=== PATIENT | female | born 1960 | race Caucasian/White ===

== ENCOUNTER 2017-09-19 08:32 | Inpatient (IN) | payer MEDICARE, MEDICAID ==
[~2017-09-19] VITALS: Ht 162.6 cm; Wt 53.1 kg
[2017-09-19] VITALS (17 sets, daily range): BP systolic 80–146; BP diastolic 55–100
[~2017-09-19 08:32] MED LIST: ATRIN IH; LEVA15HF4 IH; NORCO10T PO; VAL5T PO
[2017-09-19] MEDS ORDERED: normal saline 1000ML IV soln IVB ONE (08:40)
[2017-09-19] MEDS ORDERED: normal saline 1000ml 1,000 ML IV ONE (08:40)
[2017-09-19] MEDS ORDERED: albuterol 2.5 MG/3 ML nebule NEB ONE (08:40)
[2017-09-19] MEDS ORDERED: midazolam 100mg in NS 100ml 100 ML IV PRN (08:44)
[2017-09-19 08:55] LABS: ABG BASE EXCESS -7.1 mmol/L (-2.0-3.0); ABG HCO3 20.4 mmol/L (22.0-26.0); ABG OXYGEN SATURATION 99.4 % (95-98); ABG PCO2 (T) 48.8 mmHg (32.0-45.0); ABG PH (T) 7.239 (7.350-7.450); ABG PO2 (T) 526.3 mmHg (83-108); FCOHb 0.6 % (0.5-1.5); FMetHb 0.2 % (0.3-1.12); FO2Hb 98.6 % (94-100); PEEP 5 cm H2O; RESPIRATORY RATE 16 b/min; TIDAL VOLUME 400 mL; TOTAL HEMOGLOBIN 13.7 G/dl (12.0-16.0)
[2017-09-19] MEDS ORDERED: magnesium hydroxide 30ml (MOM) UD suspension PO PRN (08:55)
[2017-09-19] MEDS ORDERED: potassium Cl 40MEQ/NS 500ml 500 ML IV PRN (08:55)
[2017-09-19] MEDS ORDERED: ondansetron/PF 4mg/2ml inj IV PRN (08:55)
[2017-09-19] MEDS ORDERED: magnesium 4gm in 100ml NS 100 ML IV PRN (08:55)
[2017-09-19] MEDS ORDERED: sodium phosphate inj. 15 MMOL in dextrose 5%-water 150 ML IV PRN (08:55)
[2017-09-19] MEDS ORDERED: sodium phosphate inj. 30 MMOL in dextrose 5%-water 250 ML IV PRN (08:55)
[2017-09-19] MEDS ORDERED: magnesium 2GM in 50ml NS 50 ML IV PRN (08:55)
[2017-09-19] MEDS ORDERED: potassium Cl 20 mEq SR tablet PO PRN (08:55)
[2017-09-19] MEDS ORDERED: Neutra Phos packet PO PRN (08:55)
[2017-09-19] MEDS ORDERED: ipratropium/albuterol 3ml nebule NEB PRN (08:55)
[2017-09-19] MEDS ORDERED: magnesium Cl slow-release 64mg tablet PO PRN (08:55)
[2017-09-19] MEDS ORDERED: acetaminophen 325mg tablet PO PRN (08:55)
[2017-09-19 09:19] LABS: ALANINE AMINOTRANSFERASE 41 U/L (12-78); ALBUMIN 3.3 G/DL (3.4-5.0); ALBUMIN/GLOBULIN RATIO 1.1 (1.1-1.5); ALKALINE PHOSPHATASE 65 IU/L (46-116); ANION GAP 8 (8-16); ASPARTATE AMINO TRANSFERASE 36 U/L (10-37); BILIRUBIN,TOTAL 0.4 MG/DL (0.1-1.0); BLOOD UREA NITROGEN 20 MG/DL (7-18); BUN/CREATININE RATIO 19.8 (6.6-38.0); CALCIUM 7.8 MG/DL (8.5-10.1); CHLORIDE 110 MMOL/L (99-107); CREATININE 1.01 MG/DL (0.40-0.90); GLUCOSE 177 MG/DL (70-104); MAGNESIUM 2.2 MG/DL (1.5-2.4); POTASSIUM 3.9 MMOL/L (3.5-5.1); SODIUM 144 MMOL/L (135-145); TOTAL CARBON DIOXIDE 25.8 MMOL/L (24-32); TOTAL PROTEIN 6.2 G/DL (6.4-8.2); eGFR 56 ML/MIN
[2017-09-19] MEDS ORDERED: epiNEPHrine inj 5 MG in normal saline 250ml IV soln 245 ML IV SCH (09:25)
[2017-09-19 09:27] LABS: BASOPHILS % (AUTO) 0 % (0-1); EOSINOPHILS # (AUTO) 0.9 X10'3 (0-0.9); EOSINOPHILS % (AUTO) 3.7 % (0-6); HEMATOCRIT 36.2 % (35.0-45.0); HEMOGLOBIN 12.1 g/dl (12.0-16.0); LYMPHOCYTES % (AUTO) 8.4 % (21-51); MEAN CORPUSCULAR HGB CONC 33.6 % (33.0-36.5); MEAN CORPUSCULAR VOLUME 92.3 FL (78-98); MEAN PLATELET VOLUME 11.2 FL (7.4-10.4); MONOCYTES # (AUTO) 0.5 X10'3 (0-0.9); NEUTROPHILS # (AUTO) 20.7 X10'3 (1.8-7.7); NEUTROPHILS % (AUTO) 85.9 % (42-75); PLATELET COUNT 135 X10'3 (140-440); RED BLOOD COUNT 3.92 X10'6 (4.20-5.60); RED CELL DISTRIBUTION WIDTH 14.9 % (11.5-14.5)
[2017-09-19 09:42] LABS: PHOSPHORUS 4.7 MG/DL (2.3-4.5)
[2017-09-19] MEDS: normal saline 1000ml 1,000 ML IV SCH ×2 (09:53→23:35)
[2017-09-19 10:08] LABS: D-DIMER 6.61 MG/L FEU (0-0.50); PARTIAL THROMBOPLASTIN TIME 29 SECONDS (22-32); PROTHROMBIN TIME 10.8 SECONDS (9.0-12.0)
[2017-09-19] MEDS: cefTRIAXone 1g/NS 100ml IVPB 100 ML IV SCH (10:16)
[2017-09-19 10:22] LABS: CLARITY,URINE SLIGHTLY CLOUDY (Clear); GLUCOSE, URINE NEGATIVE (Neg); KETONES,URINE NEGATIVE (Neg); LEUKOCYTE ESTERASE ,URINE NEGATIVE (Neg); NITRITES, URINE NEGATIVE (Neg); OCCULT BLOOD,URINE TRACE-INTACT (Neg); PROTEIN,URINE NEGATIVE (Neg); UROBILINOGEN,URINE 0.2 E.U/dL (0.2-1.0)
[2017-09-19 10:24] LABS: PLATELET COUNT 135 X10'3 (140-440)
[2017-09-19 10:24] LABS: COLOR,URINE STRAW (Yellow); UA COLLECTION TYPE FOLEY CATH
[2017-09-19] MEDS: midazolam 100mg in NS 100ml 100 ML IV PRN ×2 (10:26→23:34)
[2017-09-19 10:33] LABS: MUCUS STRANDS FEW /LPF (Neg); SQUAMOUS EPITHELIAL CELL,UR FEW /LPF (FEW)
[2017-09-19 10:34] LABS: BACTERIA,URINE FEW /HPF (Neg); CELLULAR CAST 0-4 /LPF (NEGATIVE); FINE GRANULAR CAST 0-3 /LPF (NEGATIVE); HYALINE CASTS 0-3 /LPF (NEGATIVE); RBC,URINE 0-2 /HPF (0-2); WBC,URINE 0-4 /HPF (0-4)
[2017-09-19] MEDS: FENTANYL-0.9 % NACL/PF 100 ML IV PRN ×2 (12:00→23:35)
[2017-09-19] MEDS: NORepinephrine 8mg/ 250ml NS 250 ML IV SCH (12:41)
[2017-09-19] MEDS: ipratropium/albuterol 3ml nebule NEB SCH ×3 (14:39→22:49)
[2017-09-19] MEDS: levoFLOXACIN-Levaquin 500mg/D5 100 ML IV SCH (14:44)
[2017-09-19] MEDS: methylPREDNISolone sod succ 125mg/2ml vial IV SCH ×2 (14:44→23:33)
[2017-09-19] MEDS ORDERED: UNABLE TO OBTAIN (16:47)
[2017-09-19] MEDS: docusate sod 100mg capsule PO SCH (20:00)
[2017-09-19] MEDS: heparin, porcine 5000 units/ml vial SQ SCH (23:34)
[2017-09-20] VITALS (23 sets, daily range): BP systolic 86–121; BP diastolic 51–74
[2017-09-20 02:51] LABS: ABG BASE EXCESS -4.9 mmol/L (-2.0-3.0); ABG HCO3 21.3 mmol/L (22.0-26.0); ABG OXYGEN SATURATION 90.8 % (95-98); ABG PCO2 (T) 44.2 mmHg (32.0-45.0); ABG PH (T) 7.302 (7.350-7.450); ABG PO2 (T) 61.6 mmHg (83-108); ALLEN'S TEST Positive; FCOHb 0.7 % (0.5-1.5); FMetHb 0.1 % (0.3-1.12); FO2Hb 90.1 % (94-100); MINUTE VOLUME 7 L/min; PATIENT TEMPERATURE 37.2; PEEP 5 cm H2O; RESPIRATORY RATE 18 b/min; RESPIRATORY RATE (OBSERVED) 22 b/min; TOTAL HEMOGLOBIN 13.8 G/dl (12.0-16.0)
[2017-09-20] MEDS: ipratropium/albuterol 3ml nebule NEB SCH ×6 (02:59→23:10)
[2017-09-20] MEDS: methylPREDNISolone sod succ 125mg/2ml vial IV SCH ×4 (03:32→20:08)
[2017-09-20 04:06] LABS: BASOPHILS % (AUTO) 0.1 % (0-1); EOSINOPHILS # (AUTO) 0.2 X10'3 (0-0.9); EOSINOPHILS % (AUTO) 1.8 % (0-6); HEMATOCRIT 39.5 % (35.0-45.0); HEMOGLOBIN 13.1 g/dl (12.0-16.0); LYMPHOCYTES # (AUTO) 0.4 X10'3 (1.1-4.8); LYMPHOCYTES % (AUTO) 2.8 % (21-51); MEAN CORPUSCULAR HEMOGLOBIN 30.6 PG (27.0-31.0); MEAN CORPUSCULAR HGB CONC 33.1 % (33.0-36.5); MEAN CORPUSCULAR VOLUME 92.3 FL (78-98); MEAN PLATELET VOLUME 11.5 FL (7.4-10.4); MONOCYTES # (AUTO) 0.1 X10'3 (0-0.9); MONOCYTES % (AUTO) 0.7 % (2-12); NEUTROPHILS % (AUTO) 94.6 % (42-75); PLATELET COUNT 124 X10'3 (140-440); RED BLOOD COUNT 4.28 X10'6 (4.20-5.60); RED CELL DISTRIBUTION WIDTH 15.1 % (11.5-14.5); WHITE BLOOD COUNT 12.7 X10'3 (4.5-11.0)
[2017-09-20 04:23] LABS: ALANINE AMINOTRANSFERASE 36 U/L (12-78); ALBUMIN 2.9 G/DL (3.4-5.0); ALBUMIN/GLOBULIN RATIO 1.1 (1.1-1.5); ALKALINE PHOSPHATASE 51 IU/L (46-116); ANION GAP 7 (8-16); ASPARTATE AMINO TRANSFERASE 22 U/L (10-37); BILIRUBIN,TOTAL 0.4 MG/DL (0.1-1.0); BLOOD UREA NITROGEN 15 MG/DL (7-18); BUN/CREATININE RATIO 20.8 (6.6-38.0); CHLORIDE 109 MMOL/L (99-107); CREATININE 0.72 MG/DL (0.40-0.90); GLUCOSE 169 MG/DL (70-104); MAGNESIUM 1.8 MG/DL (1.5-2.4); PHOSPHORUS 3.2 MG/DL (2.3-4.5); SODIUM 141 MMOL/L (135-145); TOTAL PROTEIN 5.6 G/DL (6.4-8.2); eGFR 83 ML/MIN
[2017-09-20] MEDS: cefTRIAXone 1g/NS 100ml IVPB 100 ML IV SCH (08:00)
[2017-09-20] MEDS: pantoprazole 40 MG vial IV SCH (08:01)
[2017-09-20] MEDS: heparin, porcine 5000 units/ml vial SQ SCH ×2 (08:01→20:12)
[2017-09-20] MEDS: FENTANYL-0.9 % NACL/PF 100 ML IV PRN ×2 (08:02→19:24)
[2017-09-20] MEDS: levoFLOXACIN-Levaquin 500mg/D5 100 ML IV SCH (10:04)
[2017-09-20] MEDS: docusate sod 100mg capsule PO SCH ×2 (11:39→20:00)
[2017-09-20] MEDS ORDERED: normal saline 1000ml 1,000 ML IV ONE (11:40)
[2017-09-20] MEDS ORDERED: furosemide 20 MG/2 ML vial IV ONE (11:40)
[2017-09-20] MEDS: normal saline 1000ml 1,000 ML IV SCH (11:41)
[2017-09-20] MEDS: midazolam 100mg in NS 100ml 100 ML IV PRN ×2 (12:11→23:49)
[2017-09-20] MEDS ORDERED: dextrose 50%-water 50ml dispensing syringe IV PRN ×2 (14:35)
[2017-09-20] MEDS ORDERED: dextrose ORAL solution 15 GM/59 ML bottle PO PRN ×2 (14:35)
[2017-09-20] MEDS ORDERED: glucagon, human recombinant 1mg kit SUBCUT PRN (14:35)
[2017-09-20] MEDS ORDERED: MESSAGE TO PHARMACY PO ONE (14:35)
[2017-09-20] MEDS: mineral oil/petrolatum ophthal oint EACHEYE SCH ×2 (14:37→20:18)
[2017-09-20] MEDS: insulin regular, human vial - multi-dose SQ SCH ×2 (15:42→19:57)
[2017-09-20] MEDS: NORepinephrine 8mg/ 250ml NS 250 ML IV SCH (19:25)
[2017-09-20] MEDS: lactobacillus rhamnosus 10,000 MMU CELLS/CAPSULE PO SCH (20:12)
[2017-09-20] MEDS ORDERED: insulin glargine (Lantus) pen - multi-dose SQ SCH (21:00)
[2017-09-21] VITALS (24 sets, daily range): BP systolic 96–142; BP diastolic 52–87
[2017-09-21] MEDS: FENTANYL-0.9 % NACL/PF 100 ML IV PRN ×3 (01:06→14:28)
[2017-09-21 02:56] LABS: ABG BASE EXCESS 0.1 mmol/L (-2.0-3.0); ABG HCO3 26.7 mmol/L (22.0-26.0); ABG OXYGEN SATURATION 93.4 % (95-98); ABG PCO2 (T) 52.8 mmHg (32.0-45.0); ABG PH (T) 7.323 (7.350-7.450); ABG PO2 (T) 70.8 mmHg (83-108); ALLEN'S TEST Positive; FCOHb 0.1 % (0.5-1.5); FMetHb 0.3 % (0.3-1.12); PATIENT TEMPERATURE 37.2; PEEP 5 cm H2O; RESPIRATORY RATE 18 b/min; RESPIRATORY RATE (OBSERVED) 18 b/min; TIDAL VOLUME 400 mL
[2017-09-21] MEDS: ipratropium/albuterol 3ml nebule NEB SCH ×6 (02:58→22:59)
[2017-09-21] MEDS: methylPREDNISolone sod succ 125mg/2ml vial IV SCH ×4 (02:59→21:48)
[2017-09-21 03:09] LABS: BASOPHILS % (AUTO) 0 % (0-1); EOSINOPHILS # (AUTO) 0.4 X10'3 (0-0.9); EOSINOPHILS % (AUTO) 2.1 % (0-6); HEMATOCRIT 33.2 % (35.0-45.0); HEMOGLOBIN 11.2 g/dl (12.0-16.0); LYMPHOCYTES # (AUTO) 0.3 X10'3 (1.1-4.8); LYMPHOCYTES % (AUTO) 1.5 % (21-51); MEAN CORPUSCULAR HEMOGLOBIN 31.3 PG (27.0-31.0); MEAN CORPUSCULAR HGB CONC 33.7 % (33.0-36.5); MEAN PLATELET VOLUME 9.5 FL (7.4-10.4); MONOCYTES # (AUTO) 0.5 X10'3 (0-0.9); MONOCYTES % (AUTO) 2.5 % (2-12); NEUTROPHILS # (AUTO) 19.6 X10'3 (1.8-7.7); NEUTROPHILS % (AUTO) 93.9 % (42-75); PLATELET COUNT 87 X10'3 (140-440); RED BLOOD COUNT 3.56 X10'6 (4.20-5.60); RED CELL DISTRIBUTION WIDTH 15.4 % (11.5-14.5); WHITE BLOOD COUNT 20.9 X10'3 (4.5-11.0)
[2017-09-21] MEDS: insulin regular, human vial - multi-dose SQ SCH ×4 (03:09→21:30)
[2017-09-21] MEDS: mineral oil/petrolatum ophthal oint EACHEYE SCH ×4 (03:15→21:52)
[2017-09-21 03:38] LABS: ALANINE AMINOTRANSFERASE 25 U/L (12-78); ALBUMIN 2.5 G/DL (3.4-5.0); ALKALINE PHOSPHATASE 42 IU/L (46-116); ANION GAP 3 (8-16); ASPARTATE AMINO TRANSFERASE 10 U/L (10-37); BILIRUBIN,TOTAL 0.1 MG/DL (0.1-1.0); BLOOD UREA NITROGEN 22 MG/DL (7-18); BUN/CREATININE RATIO 33.3 (6.6-38.0); CALCIUM 7.7 MG/DL (8.5-10.1); CHLORIDE 112 MMOL/L (99-107); CREATININE 0.66 MG/DL (0.40-0.90); GLUCOSE 168 MG/DL (70-104); MAGNESIUM 1.9 MG/DL (1.5-2.4); PHOSPHORUS 2.2 MG/DL (2.3-4.5); POTASSIUM 4.1 MMOL/L (3.5-5.1); SODIUM 143 MMOL/L (135-145); TOTAL CARBON DIOXIDE 27.7 MMOL/L (24-32); TOTAL PROTEIN 5.1 G/DL (6.4-8.2); eGFR > 90 ML/MIN
[2017-09-21 03:40] LABS: HEMOGLOBIN A1C 5.6 % (4.5-6.2)
[2017-09-21] MEDS: normal saline 1000ml 1,000 ML IV SCH ×2 (05:48→14:13)
[2017-09-21] MEDS: lactobacillus rhamnosus 10,000 MMU CELLS/CAPSULE PO SCH ×2 (08:21→21:52)
[2017-09-21] MEDS: levoFLOXACIN-Levaquin 500mg/D5 100 ML IV SCH (08:21)
[2017-09-21] MEDS: pantoprazole 40 MG vial IV SCH (08:21)
[2017-09-21] MEDS: cefTRIAXone 1g/NS 100ml IVPB 100 ML IV SCH (08:21)
[2017-09-21] MEDS ORDERED: docusate sodium 100mg/10ml UD cup PO ONE (08:25)
[2017-09-21] MEDS ORDERED: lactulose 20gm/30ml cup PO PRN (08:55)
[2017-09-21] MEDS: heparin, porcine 5000 units/ml vial SQ SCH ×2 (09:14→21:55)
[2017-09-21] MEDS: morphine/NS 100mg/100ml bag 100 ML IV SCH (10:55)
[2017-09-21] MEDS: midazolam 100mg in NS 100ml 100 ML IV PRN (14:12)
[2017-09-21] MEDS: NORepinephrine 8mg/ 250ml NS 250 ML IV SCH (14:29)
[2017-09-21] MEDS: docusate sodium 100mg/10ml UD cup PO SCH (20:00)
[2017-09-21] MEDS: insulin glargine (Lantus) pen - multi-dose SQ SCH (21:32)
[2017-09-22] VITALS (24 sets, daily range): BP systolic 106–189; BP diastolic 58–110
[2017-09-22] MEDS: midazolam 100mg in NS 100ml 100 ML IV PRN (01:45)
[2017-09-22] MEDS: mineral oil/petrolatum ophthal oint EACHEYE SCH ×4 (02:00→20:00)
[2017-09-22] MEDS: ipratropium/albuterol 3ml nebule NEB SCH ×5 (02:46→21:08)
[2017-09-22] MEDS: methylPREDNISolone sod succ 125mg/2ml vial IV SCH ×4 (02:58→21:18)
[2017-09-22] MEDS: insulin regular, human vial - multi-dose SQ SCH ×2 (03:04→08:48)
[2017-09-22] MEDS: normal saline 1000ml 1,000 ML IV SCH ×2 (03:33→14:21)
[2017-09-22 03:36] LABS: ABG BASE EXCESS 0.7 mmol/L (-2.0-3.0); ABG HCO3 27.2 mmol/L (22.0-26.0); ABG OXYGEN SATURATION 97.7 % (95-98); ABG PH (T) 7.336 (7.350-7.450); ABG PO2 (T) 106.8 mmHg (83-108); ALLEN'S TEST Positive; FCOHb 0.3 % (0.5-1.5); FMetHb 0.3 % (0.3-1.12); FO2Hb 97.1 % (94-100); MINUTE VOLUME 8 L/min; PEEP 5 cm H2O; RESPIRATORY RATE 18 b/min; RESPIRATORY RATE (OBSERVED) 18 b/min; TIDAL VOLUME 400 mL; TOTAL HEMOGLOBIN 11.5 G/dl (12.0-16.0)
[2017-09-22 04:32] LABS: BASOPHILS % (AUTO) 0 % (0-1); EOSINOPHILS # (AUTO) 0.4 X10'3 (0-0.9); EOSINOPHILS % (AUTO) 2.1 % (0-6); HEMATOCRIT 33.1 % (35.0-45.0); LYMPHOCYTES # (AUTO) 0.3 X10'3 (1.1-4.8); LYMPHOCYTES % (AUTO) 1.6 % (21-51); MEAN CORPUSCULAR HEMOGLOBIN 31.3 PG (27.0-31.0); MEAN CORPUSCULAR HGB CONC 33.2 % (33.0-36.5); MEAN CORPUSCULAR VOLUME 94.2 FL (78-98); MEAN PLATELET VOLUME 9.8 FL (7.4-10.4); MONOCYTES # (AUTO) 0.5 X10'3 (0-0.9); MONOCYTES % (AUTO) 2.7 % (2-12); NEUTROPHILS # (AUTO) 18.9 X10'3 (1.8-7.7); NEUTROPHILS % (AUTO) 93.6 % (42-75); PLATELET COUNT 76 X10'3 (140-440); RED BLOOD COUNT 3.51 X10'6 (4.20-5.60); RED CELL DISTRIBUTION WIDTH 15.9 % (11.5-14.5); WHITE BLOOD COUNT 20.2 X10'3 (4.5-11.0)
[2017-09-22 04:48] LABS: ALANINE AMINOTRANSFERASE 44 U/L (12-78); ALBUMIN 2.5 G/DL (3.4-5.0); ALKALINE PHOSPHATASE 41 IU/L (46-116); ANION GAP 5 (8-16); ASPARTATE AMINO TRANSFERASE 27 U/L (10-37); BILIRUBIN,TOTAL 0.1 MG/DL (0.1-1.0); BLOOD UREA NITROGEN 26 MG/DL (7-18); BUN/CREATININE RATIO 44.1 (6.6-38.0); CALCIUM 7.9 MG/DL (8.5-10.1); CHLORIDE 113 MMOL/L (99-107); CREATININE 0.59 MG/DL (0.40-0.90); GLUCOSE 151 MG/DL (70-104); MAGNESIUM 2.2 MG/DL (1.5-2.4); PHOSPHORUS 2.4 MG/DL (2.3-4.5); POTASSIUM 4.4 MMOL/L (3.5-5.1); SODIUM 147 MMOL/L (135-145); TOTAL CARBON DIOXIDE 28.9 MMOL/L (24-32); eGFR > 90 ML/MIN
[2017-09-22] MEDS ORDERED: CefTRIAXone/D5W-Rocephin 1gm 50 ML IV SCH (08:00)
[2017-09-22] MEDS: levoFLOXACIN-Levaquin 500mg/D5 100 ML IV SCH (08:14)
[2017-09-22] MEDS: pantoprazole 40 MG vial IV SCH (08:15)
[2017-09-22] MEDS: lactobacillus rhamnosus 10,000 MMU CELLS/CAPSULE PO SCH ×2 (08:15→21:18)
[2017-09-22] MEDS: docusate sodium 100mg/10ml UD cup PO SCH ×2 (08:15→21:18)
[2017-09-22] MEDS: heparin, porcine 5000 units/ml vial SQ SCH ×2 (09:08→21:18)
[2017-09-22] MEDS ORDERED: ipratropium/albuterol 3ml nebule NEB PRN (12:20)
[2017-09-22] MEDS ORDERED: racepinephrine 11.25mg/0.5ml nebule NEB PRN (12:20)
[2017-09-22] MEDS: ALPRAZolam 0.25mg tablet PO PRN ×2 (15:55→21:26)
[2017-09-22] MEDS: insulin glargine (Lantus) pen - multi-dose SQ SCH (21:00)
[2017-09-22] MEDS: acetaminophen 325mg tablet PO PRN (21:27)
[2017-09-23] VITALS (14 sets, daily range): BP systolic 144–186; BP diastolic 81–115
[2017-09-23] MEDS: mineral oil/petrolatum ophthal oint EACHEYE SCH ×4 (02:00→20:00)
[2017-09-23] MEDS: methylPREDNISolone sod succ 125mg/2ml vial IV SCH ×4 (02:06→19:47)
[2017-09-23 02:35] LABS: BASOPHILS # (AUTO) 0.2 X10'3 (0-0.2); BASOPHILS % (AUTO) 1.2 % (0-1); EOSINOPHILS # (AUTO) 0.2 X10'3 (0-0.9); EOSINOPHILS % (AUTO) 1.5 % (0-6); HEMATOCRIT 38.1 % (35.0-45.0); HEMOGLOBIN 12.6 g/dl (12.0-16.0); LYMPHOCYTES # (AUTO) 0.4 X10'3 (1.1-4.8); LYMPHOCYTES % (AUTO) 2.7 % (21-51); MEAN CORPUSCULAR HGB CONC 33.2 % (33.0-36.5); MEAN CORPUSCULAR VOLUME 93.2 FL (78-98); MEAN PLATELET VOLUME 10.4 FL (7.4-10.4); MONOCYTES # (AUTO) 0.8 X10'3 (0-0.9); NEUTROPHILS % (AUTO) 89.6 % (42-75); PLATELET COUNT 74 X10'3 (140-440); RED BLOOD COUNT 4.08 X10'6 (4.20-5.60); RED CELL DISTRIBUTION WIDTH 15.7 % (11.5-14.5); WHITE BLOOD COUNT 15.6 X10'3 (4.5-11.0)
[2017-09-23] MEDS: normal saline 1000ml 1,000 ML IV SCH (02:36)
[2017-09-23] MEDS: morphine/NS 100mg/100ml bag 100 ML IV SCH (02:55)
[2017-09-23 03:00] LABS: ALANINE AMINOTRANSFERASE 258 U/L (12-78); ALBUMIN 3.1 G/DL (3.4-5.0); ALBUMIN/GLOBULIN RATIO 1.1 (1.1-1.5); ALKALINE PHOSPHATASE 56 IU/L (46-116); ANION GAP 6 (8-16); ASPARTATE AMINO TRANSFERASE 139 U/L (10-37); BILIRUBIN,TOTAL 0.8 MG/DL (0.1-1.0); BLOOD UREA NITROGEN 23 MG/DL (7-18); CALCIUM 8.6 MG/DL (8.5-10.1); CHLORIDE 102 MMOL/L (99-107); CREATININE 0.59 MG/DL (0.40-0.90); GLUCOSE 98 MG/DL (70-104); POTASSIUM 3.7 MMOL/L (3.5-5.1); SODIUM 142 MMOL/L (135-145); TOTAL CARBON DIOXIDE 33.6 MMOL/L (24-32); TOTAL PROTEIN 5.9 G/DL (6.4-8.2); eGFR > 90 ML/MIN
[2017-09-23] MEDS: ipratropium/albuterol 3ml nebule NEB SCH ×4 (03:22→22:28)
[2017-09-23] MEDS: ALPRAZolam 0.25mg tablet PO PRN ×2 (04:07→11:50)
[2017-09-23] MEDS: levoFLOXACIN-Levaquin 500mg/D5 100 ML IV SCH (08:00)
[2017-09-23] MEDS: docusate sodium 100mg/10ml UD cup PO SCH ×2 (09:23→20:00)
[2017-09-23] MEDS: lactobacillus rhamnosus 10,000 MMU CELLS/CAPSULE PO SCH ×2 (09:23→19:46)
[2017-09-23] MEDS: pantoprazole 40 MG vial IV SCH (09:23)
[2017-09-23] MEDS: heparin, porcine 5000 units/ml vial SQ SCH ×2 (09:24→20:00)
[2017-09-23] MEDS: CefTRIAXone inj 1,000 MG in normal saline 100ml IV soln 100 ML IV SCH (11:50)
[2017-09-23] MEDS ORDERED: enalaprilat dihydrate 2.5mg/2ml vial IV ONE (15:50)
[2017-09-23] MEDS: ALPRAZolam 0.5mg tablet PO PRN (18:20)
[2017-09-23] MEDS: temazepam 15mg capsule PO PRN (19:46)
[2017-09-23] MEDS: insulin glargine (Lantus) pen - multi-dose SQ SCH (21:00)
[2017-09-24] MEDS: mineral oil/petrolatum ophthal oint EACHEYE SCH ×4 (02:00→20:00)
[2017-09-24] MEDS: ipratropium/albuterol 3ml nebule NEB SCH (02:29)
[2017-09-24] MEDS: ALPRAZolam 0.5mg tablet PO PRN ×3 (02:35→23:28)
[2017-09-24] MEDS: methylPREDNISolone sod succ 125mg/2ml vial IV SCH ×4 (02:36→21:08)
[2017-09-24 03:00] VITALS: BP 137/84
[2017-09-24 06:00] VITALS: BP 108/63
[2017-09-24 06:47] LABS: BASOPHILS % (AUTO) 0.1 % (0-1); EOSINOPHILS % (AUTO) 0.1 % (0-6); LYMPHOCYTES # (AUTO) 0.4 X10'3 (1.1-4.8); LYMPHOCYTES % (AUTO) 4.7 % (21-51); MEAN CORPUSCULAR HGB CONC 34.2 % (33.0-36.5); MEAN CORPUSCULAR VOLUME 90.8 FL (78-98); MEAN PLATELET VOLUME 9.4 FL (7.4-10.4); MONOCYTES # (AUTO) 0.7 X10'3 (0-0.9); MONOCYTES % (AUTO) 7.4 % (2-12); NEUTROPHILS # (AUTO) 7.8 X10'3 (1.8-7.7); NEUTROPHILS % (AUTO) 87.7 % (42-75); PLATELET COUNT 58 X10'3 (140-440); RED BLOOD COUNT 4.19 X10'6 (4.20-5.60); RED CELL DISTRIBUTION WIDTH 15.6 % (11.5-14.5); WHITE BLOOD COUNT 8.9 X10'3 (4.5-11.0)
[2017-09-24 07:12] LABS: ALANINE AMINOTRANSFERASE 304 U/L (12-78); ALBUMIN 3.2 G/DL (3.4-5.0); ALBUMIN/GLOBULIN RATIO 1.3 (1.1-1.5); ALKALINE PHOSPHATASE 63 IU/L (46-116); ANION GAP 3 (8-16); ASPARTATE AMINO TRANSFERASE 76 U/L (10-37); BILIRUBIN,TOTAL 0.9 MG/DL (0.1-1.0); BLOOD UREA NITROGEN 25 MG/DL (7-18); CALCIUM 8.8 MG/DL (8.5-10.1); CHLORIDE 104 MMOL/L (99-107); CREATININE 0.61 MG/DL (0.40-0.90); GLUCOSE 133 MG/DL (70-104); MAGNESIUM 2.3 MG/DL (1.5-2.4); PHOSPHORUS 3.5 MG/DL (2.3-4.5); POTASSIUM 3.4 MMOL/L (3.5-5.1); PREALBUMIN 22.3 MG/DL (19-36); SODIUM 144 MMOL/L (135-145); TOTAL CARBON DIOXIDE 37.3 MMOL/L (24-32); TOTAL PROTEIN 5.7 G/DL (6.4-8.2); eGFR > 90 ML/MIN
[2017-09-24] MEDS: sertraline 25mg tablet PO SCH ×2 (07:41→08:00)
[2017-09-24] MEDS: heparin, porcine 5000 units/ml vial SQ SCH ×2 (07:42→21:10)
[2017-09-24] MEDS: pantoprazole 40mg Tablet.DR PO SCH (07:43)
[2017-09-24] MEDS: lactobacillus rhamnosus 10,000 MMU CELLS/CAPSULE PO SCH ×2 (07:43→21:08)
[2017-09-24] MEDS: CefTRIAXone inj 1,000 MG in normal saline 100ml IV soln 100 ML IV SCH ×2 (07:43→08:50)
[2017-09-24] MEDS ORDERED: methylnaltrexone br 12mg/0.6ml inj***SubQ only SQ SCH (08:00)
[2017-09-24] MEDS: docusate sodium 100mg/10ml UD cup PO SCH ×2 (08:00→20:00)
[2017-09-24] MEDS ORDERED: iohexol 350MG/ML 100ml bottle IV ONE (10:21)
[2017-09-24 11:00] VITALS: BP 151/100
[2017-09-24] MEDS: potassium Cl 20 mEq SR tablet PO PRN ×2 (11:30→15:27)
[2017-09-24] MEDS: acetaminophen 325mg tablet PO PRN ×3 (11:37→23:18)
[2017-09-24 15:00] VITALS: BP 129/76
[2017-09-24 15:36] LABS: INR 1.1 INR; PARTIAL THROMBOPLASTIN TIME 24 SECONDS (22-32); PROTHROMBIN TIME 10.9 SECONDS (9.0-12.0)
[2017-09-24 19:00] VITALS: BP 134/77
[2017-09-24] MEDS: insulin glargine (Lantus) pen - multi-dose SQ SCH (21:00)
[2017-09-24 23:00] VITALS: BP 146/102
[2017-09-25] MEDS: mineral oil/petrolatum ophthal oint EACHEYE SCH ×2 (02:00→06:41)
[2017-09-25] MEDS: methylPREDNISolone sod succ 125mg/2ml vial IV SCH ×3 (02:10→13:54)
[2017-09-25 03:00] VITALS: BP 130/76
[2017-09-25 05:41] LABS: BASOPHILS % (AUTO) 0.1 % (0-1); EOSINOPHILS % (AUTO) 0.1 % (0-6); HEMATOCRIT 41.6 % (35.0-45.0); HEMOGLOBIN 14.3 g/dl (12.0-16.0); LYMPHOCYTES # (AUTO) 0.5 X10'3 (1.1-4.8); LYMPHOCYTES % (AUTO) 4.3 % (21-51); MEAN CORPUSCULAR HEMOGLOBIN 31.5 PG (27.0-31.0); MEAN CORPUSCULAR HGB CONC 34.4 % (33.0-36.5); MEAN CORPUSCULAR VOLUME 91.7 FL (78-98); MEAN PLATELET VOLUME 11.5 FL (7.4-10.4); MONOCYTES # (AUTO) 0.4 X10'3 (0-0.9); MONOCYTES % (AUTO) 3.2 % (2-12); NEUTROPHILS # (AUTO) 11.4 X10'3 (1.8-7.7); NEUTROPHILS % (AUTO) 92.3 % (42-75); PLATELET COUNT 71 X10'3 (140-440); RED BLOOD COUNT 4.53 X10'6 (4.20-5.60); RED CELL DISTRIBUTION WIDTH 15.3 % (11.5-14.5); WHITE BLOOD COUNT 12.4 X10'3 (4.5-11.0)
[2017-09-25 05:55] LABS: ALANINE AMINOTRANSFERASE 243 U/L (12-78); ALBUMIN 3.3 G/DL (3.4-5.0); ALBUMIN/GLOBULIN RATIO 1.2 (1.1-1.5); ALKALINE PHOSPHATASE 63 IU/L (46-116); ANION GAP 4 (8-16); ASPARTATE AMINO TRANSFERASE 29 U/L (10-37); BILIRUBIN,TOTAL 0.9 MG/DL (0.1-1.0); BLOOD UREA NITROGEN 28 MG/DL (7-18); BUN/CREATININE RATIO 36.8 (6.6-38.0); CALCIUM 8.7 MG/DL (8.5-10.1); CHLORIDE 104 MMOL/L (99-107); CREATININE 0.76 MG/DL (0.40-0.90); GLUCOSE 127 MG/DL (70-104); MAGNESIUM 2.2 MG/DL (1.5-2.4); PHOSPHORUS 3.8 MG/DL (2.3-4.5); POTASSIUM 4.2 MMOL/L (3.5-5.1); SODIUM 142 MMOL/L (135-145); TOTAL CARBON DIOXIDE 33.7 MMOL/L (24-32); eGFR 78 ML/MIN
[2017-09-25 06:00] VITALS: BP 144/91
[2017-09-25 06:42] LABS: LARGE PLATELETS FEW; PLATELET ESTIMATE DECREASED
[2017-09-25 07:00] VITALS: BP 144/81
[2017-09-25] MEDS: sertraline 25mg tablet PO SCH (08:33)
[2017-09-25] MEDS: CefTRIAXone inj 1,000 MG in normal saline 100ml IV soln 100 ML IV SCH (08:33)
[2017-09-25] MEDS: lactobacillus rhamnosus 10,000 MMU CELLS/CAPSULE PO SCH ×2 (08:33→20:00)
[2017-09-25] MEDS: pantoprazole 40mg Tablet.DR PO SCH (08:34)
[2017-09-25] MEDS: docusate sodium 100mg/10ml UD cup PO SCH ×2 (08:34→20:00)
[2017-09-25] MEDS: heparin, porcine 5000 units/ml vial SQ SCH (08:36)
[2017-09-25] MEDS: ALPRAZolam 0.5mg tablet PO PRN ×2 (08:37→17:19)
[2017-09-25 11:00] VITALS: BP 148/95
[2017-09-25] MEDS: apixaban 5mg tablet PO SCH ×2 (12:37→20:01)
[2017-09-25 19:00] VITALS: BP 152/83
[2017-09-25] MEDS: temazepam 15mg capsule PO PRN (20:10)
[2017-09-25] MEDS: ipratropium/albuterol 3ml nebule NEB SCH (20:49)
[2017-09-25] MEDS: insulin glargine (Lantus) pen - multi-dose SQ SCH (21:00)
[2017-09-25 23:00] VITALS: BP 116/72
[2017-09-26] MEDS: ipratropium/albuterol 3ml nebule NEB SCH ×2 (02:00→08:43)
[2017-09-26 03:00] VITALS: BP 119/77
[2017-09-26 05:58] LABS: BASOPHILS % (AUTO) 0.3 % (0-1); EOSINOPHILS # (AUTO) 0.4 X10'3 (0-0.9); EOSINOPHILS % (AUTO) 2.8 % (0-6); HEMATOCRIT 39.7 % (35.0-45.0); HEMOGLOBIN 13.4 g/dl (12.0-16.0); LYMPHOCYTES # (AUTO) 2.4 X10'3 (1.1-4.8); MEAN CORPUSCULAR HGB CONC 33.8 % (33.0-36.5); MEAN CORPUSCULAR VOLUME 91.6 FL (78-98); MONOCYTES % (AUTO) 6.3 % (2-12); NEUTROPHILS % (AUTO) 75.6 % (42-75); PLATELET COUNT 69 X10'3 (140-440); RED BLOOD COUNT 4.34 X10'6 (4.20-5.60); RED CELL DISTRIBUTION WIDTH 15.2 % (11.5-14.5); WHITE BLOOD COUNT 15.8 X10'3 (4.5-11.0)
[2017-09-26 06:18] LABS: ALANINE AMINOTRANSFERASE 159 U/L (12-78); ALBUMIN/GLOBULIN RATIO 1.2 (1.1-1.5); ALKALINE PHOSPHATASE 54 IU/L (46-116); ANION GAP 5 (8-16); ASPARTATE AMINO TRANSFERASE 21 U/L (10-37); BILIRUBIN,TOTAL 0.6 MG/DL (0.1-1.0); BLOOD UREA NITROGEN 27 MG/DL (7-18); BUN/CREATININE RATIO 37.5 (6.6-38.0); CALCIUM 8.7 MG/DL (8.5-10.1); CHLORIDE 104 MMOL/L (99-107); CREATININE 0.72 MG/DL (0.40-0.90); GLUCOSE 86 MG/DL (70-104); PHOSPHORUS 3.6 MG/DL (2.3-4.5); POTASSIUM 3.7 MMOL/L (3.5-5.1); SODIUM 142 MMOL/L (135-145); TOTAL PROTEIN 5.5 G/DL (6.4-8.2); eGFR 83 ML/MIN
[2017-09-26 06:41] LABS: LARGE PLATELETS FEW; PLATELET ESTIMATE DECREASED
[2017-09-26] MEDS: pantoprazole 40mg Tablet.DR PO SCH (07:59)
[2017-09-26] MEDS: apixaban 5mg tablet PO SCH (07:59)
[2017-09-26] MEDS: docusate sodium 100mg/10ml UD cup PO SCH (08:00)
[2017-09-26] MEDS: lactobacillus rhamnosus 10,000 MMU CELLS/CAPSULE PO SCH (08:00)
[2017-09-26] MEDS: sertraline 25mg tablet PO SCH (08:00)
[2017-09-26] MEDS ORDERED: predniSONE 20 mg tablet PO SCH (08:00)
[2017-09-26] MEDS: ALPRAZolam 0.5mg tablet PO PRN (08:03)
[2017-09-26] MEDS: CefTRIAXone inj 1,000 MG in normal saline 100ml IV soln 100 ML IV SCH (08:03)
[2017-09-26 11:00] VITALS: BP 154/95
[2017-09-26] MEDS ORDERED: PRED10TA23 PO (11:47)
[2017-09-26] MEDS ORDERED: NEBU-161 (11:47)
[2017-09-26] MEDS ORDERED: SERT25TA5 PO (11:47)
[2017-09-26] MEDS ORDERED: IPRA3AMP9 NEB (11:47)
[2017-09-26] MEDS ORDERED: ALPR0.5T9 PO (11:47)
[2017-09-26] MEDS ORDERED: ATRIN INH (11:48)
[2017-09-26] MEDS ORDERED: ALBU8HFA PO (11:51)
[2017-09-26] MEDS ORDERED: DOXY100C2 PO (11:54)
[2017-09-26] MEDS ORDERED: MAGN400O6 PO (12:05)
[2017-09-26] MEDS ORDERED: APIX5TAB3 PO ×2 (12:05)
== END 2017-09-26 12:45 | disposition home or self-care (01) | DRG 208 ==
LOC: ER 08:33 → ED HOLD 08:53 → ICU 2S 11:25 → PCU 3S 09-23 13:28
PROVIDERS: ADMIT Internal Medicine Critical Care Medicine; ATTEND Emergency Medicine
PROC: 5A1945Z Respiratory Ventilation, 24-96 Consecutive Hours (ICD-10-PCS; principal; 2017-09-19)
PROC: 02HV33Z Insertion of Infusion Device into Superior Vena Cava, Percutaneous Approach (ICD-10-PCS; 2017-09-19)
PROC: BW241ZZ Computerized Tomography (CT Scan) of Chest and Abdomen using Low Osmolar Contrast (ICD-10-PCS; 2017-09-24)
DX: J96.00 Acute respiratory failure, unspecified whether with hypoxia or hypercapnia (principal); I26.99 Other pulmonary embolism without acute cor pulmonale; I46.9 Cardiac arrest, cause unspecified; J44.1 Chronic obstructive pulmonary disease with (acute) exacerbation; I82.621 Acute embolism and thrombosis of deep veins of right upper extremity; D72.829 Elevated white blood cell count, unspecified; F41.1 Generalized anxiety disorder; F32.9 Major depressive disorder, single episode, unspecified; G43.909 Migraine, unspecified, not intractable, without status migrainosus; K21.9 Gastro-esophageal reflux disease without esophagitis; M06.9 Rheumatoid arthritis, unspecified; F15.10 Other stimulant abuse, uncomplicated; Z72.0 Tobacco use; Z90.710 Acquired absence of both cervix and uterus; Z99.81 Dependence on supplemental oxygen; Z88.5 Allergy status to narcotic agent; Z79.899 Other long term (current) drug therapy; Z85.43 Personal history of malignant neoplasm of ovary; Z86.73 Personal history of transient ischemic attack (TIA), and cerebral infarction without residual deficits
CPT/HCPCS: 36415; 36569; 36600; 70450; 71045; 71275; 73110; 73502; 76937; 80053; 81001; 82803; 82948; 83036; 83605; 83735; 83880; 84100; 84134; 84145; 84443; 84484; 85018; 85025; 85379; 85384; 85610; 85730; 87070; 92616; 93005; 93306; 93970; 93971; 94002; 94003; 94640; 94760; 97110; 97116; 97161; 97530; 99291; A4333; A6213; A6257; A6258; A6446; A6449; A7015; C1758; C9113; J0171; J0696; J1644; J1815; J1940; J1956; J2250; J2270; J2930; J7030; J7512; Q9967

== ENCOUNTER 2017-10-02 17:15 | Emergency (ER) | payer MEDICARE, MEDICAID ==
[~2017-10-02] VITALS: Ht 167.6 cm; Wt 53.0 kg
[~2017-10-02 17:15] MED LIST changes: +ALBU8HFA PO; +ALPR0.5T9 PO; +APIX5TAB3 PO; -ATRIN IH; +ATRIN INH; +DOXY100C2 PO; +IPRA3AMP9 NEB; -LEVA15HF4 IH; +MAGN400O6 PO; +NEBU-161; -NORCO10T PO; +PRED10TA23 PO; +SERT25TA5 PO; +UNABLE TO OBTAIN; -VAL5T PO
[2017-10-02 18:09] LABS: BASOPHILS % (AUTO) 0.2 % (0-1); EOSINOPHILS # (AUTO) 0.4 X10'3 (0-0.9); HEMATOCRIT 38.5 % (35.0-45.0); LYMPHOCYTES # (AUTO) 1.1 X10'3 (1.1-4.8); LYMPHOCYTES % (AUTO) 5.8 % (21-51); MEAN CORPUSCULAR HEMOGLOBIN 30.9 PG (27.0-31.0); MEAN CORPUSCULAR HGB CONC 33.7 % (33.0-36.5); MEAN CORPUSCULAR VOLUME 91.5 FL (78-98); MEAN PLATELET VOLUME 10.4 FL (7.4-10.4); MONOCYTES # (AUTO) 0.8 X10'3 (0-0.9); MONOCYTES % (AUTO) 3.9 % (2-12); NEUTROPHILS # (AUTO) 16.7 X10'3 (1.8-7.7); NEUTROPHILS % (AUTO) 88.1 % (42-75); PLATELET COUNT 200 X10'3 (140-440); RED BLOOD COUNT 4.21 X10'6 (4.20-5.60); RED CELL DISTRIBUTION WIDTH 16.6 % (11.5-14.5)
[2017-10-02 18:21] LABS: PARTIAL THROMBOPLASTIN TIME 24 SECONDS (22-32); PROTHROMBIN TIME 10.7 SECONDS (9.0-12.0)
[2017-10-02 18:24] LABS: ALANINE AMINOTRANSFERASE 109 U/L (12-78); ALBUMIN 3.4 G/DL (3.4-5.0); ALBUMIN/GLOBULIN RATIO 1.3 (1.1-1.5); ALKALINE PHOSPHATASE 67 IU/L (46-116); ANION GAP 9 (8-16); ASPARTATE AMINO TRANSFERASE 24 U/L (10-37); BILIRUBIN,TOTAL 0.5 MG/DL (0.1-1.0); BLOOD UREA NITROGEN 31 MG/DL (7-18); CALCIUM 8.9 MG/DL (8.5-10.1); CHLORIDE 103 MMOL/L (99-107); CREATININE 0.97 MG/DL (0.40-0.90); GLUCOSE 149 MG/DL (70-104); POTASSIUM 3.6 MMOL/L (3.5-5.1); SODIUM 140 MMOL/L (135-145); TOTAL CARBON DIOXIDE 28.3 MMOL/L (24-32); TOTAL PROTEIN 6.1 G/DL (6.4-8.2); eGFR 59 ML/MIN
[2017-10-02 19:26] VITALS: BP 158/90
== END 2017-10-02 19:28 | disposition home or self-care (01) ==
LOC: ER 17:15
DX: D72.829 Elevated white blood cell count, unspecified (principal); R00.8 Other abnormalities of heart beat; J44.9 Chronic obstructive pulmonary disease, unspecified; M06.9 Rheumatoid arthritis, unspecified; Z86.711 Personal history of pulmonary embolism; Z90.710 Acquired absence of both cervix and uterus; Z88.5 Allergy status to narcotic agent; Z79.899 Other long term (current) drug therapy
CPT/HCPCS: 36415; 80053; 85025; 85610; 85730; 93005; 99285

== ENCOUNTER 2019-11-07 08:49 | Inpatient (IN) | payer MEDICARE, MEDICAID ==
[~2019-11-07] VITALS: Ht 167.6 cm; Wt 64.1 kg
[2019-11-07] VITALS (10 sets, daily range): BP systolic 133–152; BP diastolic 76–93
[~2019-11-07 08:49] MED LIST changes: -ALBU8HFA PO; -DOXY100C2 PO; -PRED10TA23 PO
[2019-11-07] MEDS ORDERED: methylPREDNISolone sod succ 125mg/2ml vial IV ONE ×2 (08:55→13:00)
[2019-11-07] MEDS ORDERED: ipratropium/albuterol 3ml nebule NEB ONE (08:55)
[2019-11-07] MEDS: propofol 1000mg/100ml bottle 100 ML IV SCH ×4 (09:10→22:26)
[2019-11-07 09:11] LABS: ABG BASE EXCESS -1.8 mmol/L (-2.0-3.0); ABG HCO3 27.5 mmol/L (22.0-26.0); ABG OXYGEN SATURATION 98.6 % (95-98); ABG PCO2 (T) 64.9 mmHg (35.0-45.0); ABG PH (T) 7.243 (7.350-7.450); ABG PO2 (T) 152.2 mmHg (83-108); ALLEN'S TEST POSITIVE; FCOHb 0.9 % (0.5-1.5); FMetHb 0.2 % (0.3-1.12); FO2Hb 97.5 % (94-100); PATIENT TEMPERATURE 36.5; PEEP 5 cm H2O; RESPIRATORY RATE 15 b/min; TIDAL VOLUME 400 mL; TOTAL HEMOGLOBIN 16.4 G/dl (12.0-16.0)
[2019-11-07 09:19] LABS: BASOPHILS # (AUTO) 0.1 X10'3 (0-0.2); BASOPHILS % (AUTO) 0.6 % (0-1); EOSINOPHILS # (AUTO) 0.1 X10'3 (0-0.9); EOSINOPHILS % (AUTO) 0.5 % (0-6); HEMATOCRIT 46.8 % (35.0-45.0); HEMOGLOBIN 15.5 g/dl (12.0-16.0); LYMPHOCYTES # (AUTO) 0.4 X10'3 (1.1-4.8); LYMPHOCYTES % (AUTO) 1.6 % (21-51); MEAN CORPUSCULAR HEMOGLOBIN 32.7 PG (27.0-31.0); MEAN CORPUSCULAR VOLUME 98.9 FL (78-98); MEAN PLATELET VOLUME 10.5 FL (7.4-10.4); MONOCYTES # (AUTO) 0.4 X10'3 (0-0.9); MONOCYTES % (AUTO) 1.6 % (2-12); NEUTROPHILS # (AUTO) 22.3 X10'3 (1.8-7.7); NEUTROPHILS % (AUTO) 95.7 % (42-75); PLATELET COUNT 150 X10'3 (140-440); RED BLOOD COUNT 4.73 X10'6 (4.20-5.60); RED CELL DISTRIBUTION WIDTH 14.2 % (11.5-14.5); WHITE BLOOD COUNT 23.3 X10'3 (4.5-11.0)
[2019-11-07 09:36] LABS: PARTIAL THROMBOPLASTIN TIME 26 SECONDS (22-32)
[2019-11-07 09:43] LABS: BILIRUBIN,TOTAL 0.2 MG/DL (0.1-1.0); BLOOD UREA NITROGEN 20 MG/DL (7-18); BUN/CREATININE RATIO 21.3 (6.6-38.0); CHLORIDE 107 MMOL/L (99-107); CREATININE 0.94 MG/DL (0.40-0.90); GLUCOSE 151 MG/DL (70-104); SODIUM 142 MMOL/L (135-145); eGFR 61 ML/MIN
[2019-11-07 09:50] LABS: ALANINE AMINOTRANSFERASE 29 U/L (12-78); ALBUMIN 3.6 G/DL (3.4-5.0); ALBUMIN/GLOBULIN RATIO 1.2 (1.1-1.5); ALKALINE PHOSPHATASE 80 IU/L (46-116); ANION GAP 6 (8-16); ASPARTATE AMINO TRANSFERASE 19 U/L (10-37); CALCIUM 8.3 MG/DL (8.5-10.1); TOTAL CARBON DIOXIDE 29.5 MMOL/L (24-32); TOTAL PROTEIN 6.7 G/DL (6.4-8.2)
[2019-11-07 10:02] LABS: TOTAL CELLS COUNTED 100
[2019-11-07 10:03] LABS: PLATELET ESTIMATE NORMAL; TOXIC GRANULATION 1+
--- NOTE | 2019-11-07 10:06 | NUR ---
diprivan was titrated up 5 mcg per protocol
--- NOTE | 2019-11-07 10:13 | NUR ---
diprivan titrated up 5mcg per protocol
--- NOTE | 2019-11-07 10:19 | NUR ---
diprivan titrated up 5mcg per protocol
--- NOTE | 2019-11-07 10:24 | NUR ---
diprivan was titrated up 5 mcg per protocol
--- NOTE | 2019-11-07 10:34 | NUR ---
diprivan was titrated up 5 mcg per protocol
[2019-11-07] MEDS ORDERED: ALBU2.5V13 PO (10:43)
[2019-11-07] MEDS ORDERED: PRED20TA PO (10:43)
[2019-11-07] MEDS ORDERED: ALBU18HF2 PO (10:43)
--- NOTE | 2019-11-07 10:59 | NUR ---
diprivan was titrated up [address] gallegos verbal orders to keep respirations <16/minute
[2019-11-07] MEDS: CefTRIAXone 2gm/D5W 50ml 50 ML IV SCH (11:00)
[2019-11-07] MEDS ORDERED: magnesium 2GM in 50ml NS 50 ML IV PRN (11:00)
[2019-11-07] MEDS ORDERED: morphine 4 MG/ML inj SYRINge IV PRN (11:00)
[2019-11-07] MEDS ORDERED: ipratropium/albuterol 3ml nebule NEB PRN (11:00)
[2019-11-07] MEDS ORDERED: potassium Cl 20 mEq SR tablet PO PRN ×2 (11:00)
[2019-11-07] MEDS ORDERED: ondansetron/PF 4mg/2ml inj IV PRN (11:00)
[2019-11-07] MEDS ORDERED: magnesium 4gm in 100ml NS 100 ML IV PRN (11:00)
[2019-11-07] MEDS ORDERED: LIDOcaine 2% 10ml TOPICAL JELLY (Urojet) TP ONE (11:00)
[2019-11-07] MEDS: normal saline 1000ml 1,000 ML IV SCH (11:00)
[2019-11-07] MEDS ORDERED: magnesium Cl slow-release 64mg tablet PO PRN (11:00)
[2019-11-07] MEDS ORDERED: magnesium hydroxide 30ml (MOM) UD suspension PO PRN (11:00)
[2019-11-07] MEDS ORDERED: acetaminophen 325mg tablet PO PRN (11:00)
--- NOTE | 2019-11-07 11:18 | NUR ---
Pillo amin in ED - 11/07/19 at 1121 by GERALDO jelani alvarez [phone] wants to be kept aware of status
--- NOTE | 2019-11-07 11:21 | NUR ---
son elsy alvarez [phone] wants to be kept aware of status
[2019-11-07] MEDS ORDERED: FLUT1DIS20 INH (11:36)
[2019-11-07] MEDS ORDERED: APIX5TAB3 PO (11:36)
[2019-11-07] MEDS ORDERED: ALPR-624 PO (11:36)
--- NOTE | 2019-11-07 11:42 | NUR ---
pt sitting up in bed, titrated diprivan up 5 mcg per protocol
[2019-11-07] MEDS ORDERED: BUDE10.2 INH (11:53)
[2019-11-07] MEDS ORDERED: UMEC62.5 PO (11:53)
--- NOTE | 2019-11-07 12:00 | NUR ---
Lab informed the charge nurse COVID-[address] staff notified of negative status and that the patient is ready for CT scan. She stated that they are in the middle of an involved scan for another patient and will let us know when they can take her.
[2019-11-07 12:31] LABS: MAGNESIUM 3.2 MG/DL (1.5-2.4)
[2019-11-07] MEDS: pantoprazole 40 MG vial IV SCH (14:11)
[2019-11-07] MEDS: levoFLOXACIN-Levaquin 500mg/D5 100 ML IV SCH (14:12)
[2019-11-08] VITALS (25 sets, daily range): BP systolic 112–169; BP diastolic 57–105
[2019-11-08] MEDS: normal saline 1000ml 1,000 ML IV SCH ×2 (00:20→13:33)
[2019-11-08 02:51] LABS: BASOPHILS # (AUTO) 0.1 X10'3 (0-0.2); BASOPHILS % (AUTO) 0.4 % (0-1); EOSINOPHILS % (AUTO) 0 % (0-6); HEMATOCRIT 44.3 % (35.0-45.0); HEMOGLOBIN 14.6 g/dl (12.0-16.0); LYMPHOCYTES # (AUTO) 0.7 X10'3 (1.1-4.8); LYMPHOCYTES % (AUTO) 2.9 % (21-51); MEAN CORPUSCULAR HEMOGLOBIN 32.2 PG (27.0-31.0); MEAN CORPUSCULAR HGB CONC 32.9 g/dL (33.0-36.5); MEAN CORPUSCULAR VOLUME 97.8 FL (78-98); MEAN PLATELET VOLUME 11.2 FL (7.4-10.4); MONOCYTES # (AUTO) 0.8 X10'3 (0-0.9); MONOCYTES % (AUTO) 3.5 % (2-12); NEUTROPHILS # (AUTO) 21.4 X10'3 (1.8-7.7); NEUTROPHILS % (AUTO) 93.2 % (42-75); PLATELET COUNT 155 X10'3 (140-440); RED BLOOD COUNT 4.53 X10'6 (4.20-5.60); RED CELL DISTRIBUTION WIDTH 13.9 % (11.5-14.5); WHITE BLOOD COUNT 22.9 X10'3 (4.5-11.0)
[2019-11-08 03:14] LABS: ALANINE AMINOTRANSFERASE 20 U/L (12-78); ALBUMIN 3.1 G/DL (3.4-5.0); ALBUMIN/GLOBULIN RATIO 0.9 (1.1-1.5); ALKALINE PHOSPHATASE 73 IU/L (46-116); ANION GAP 2 (8-16); ASPARTATE AMINO TRANSFERASE 19 U/L (10-37); BILIRUBIN,TOTAL 0.3 MG/DL (0.1-1.0); BLOOD UREA NITROGEN 17 MG/DL (7-18); BUN/CREATININE RATIO 18.5 (6.6-38.0); CALCIUM 8.1 MG/DL (8.5-10.1); CHLORIDE 105 MMOL/L (99-107); CREATININE 0.92 MG/DL (0.40-0.90); GLUCOSE 127 MG/DL (70-104); MAGNESIUM 2.3 MG/DL (1.5-2.4); POTASSIUM 4.5 MMOL/L (3.5-5.1); SODIUM 137 MMOL/L (135-145); TOTAL CARBON DIOXIDE 30.1 MMOL/L (24-32); TOTAL PROTEIN 6.5 G/DL (6.4-8.2); eGFR 62 ML/MIN
[2019-11-08 03:46] LABS: ABG OXYGEN SATURATION 95.7 % (95-98); ABG PH (T) 7.436 (7.350-7.450); ABG PO2 (T) 73.5 mmHg (83-108); FCOHb 0.3 % (0.5-1.5); FMetHb 0.2 % (0.3-1.12); FO2Hb 95.2 % (94-100); PEEP 5 cm H2O; RESPIRATORY RATE 12 b/min; TIDAL VOLUME 400 mL; TOTAL HEMOGLOBIN 15.3 G/dl (12.0-16.0)
[2019-11-08 03:50] LABS: PLATELET ESTIMATE NORMAL; STOMATOCYTES FEW; TOTAL CELLS COUNTED 100
[2019-11-08] MEDS: propofol 1000mg/100ml bottle 100 ML IV SCH ×2 (04:16→07:07)
[2019-11-08] MEDS: acetaminophen 325mg tablet PO PRN ×2 (04:17→20:06)
[2019-11-08] MEDS: K, MAG and/or Phos replacement - Verify level? MC SCH ×2 (07:00→08:48)
[2019-11-08] MEDS: CefTRIAXone 2gm/D5W 50ml 50 ML IV SCH (07:01)
[2019-11-08] MEDS: pantoprazole 40 MG vial IV SCH (07:01)
[2019-11-08] MEDS: levoFLOXACIN-Levaquin 500mg/D5 100 ML IV SCH (07:08)
[2019-11-08 09:30] LABS: ABG BASE EXCESS -2.1 mmol/L (-2.0-3.0); ABG HCO3 20.5 mmol/L (22.0-26.0); ABG OXYGEN SATURATION 96.5 % (95-98); ABG PCO2 (T) 30.1 mmHg (35.0-45.0); ABG PH (T) 7.452 (7.350-7.450); ABG PO2 (T) 78.1 mmHg (83-108); ALLEN'S TEST POSITIVE; FCOHb 0.3 % (0.5-1.5); FMetHb 0.2 % (0.3-1.12); PEEP 5 cm H2O; TOTAL HEMOGLOBIN 15.2 G/dl (12.0-16.0)
[2019-11-08 10:52] LABS: URINE AMPHETAMINE SCREEN POSITIVE (Neg); URINE BARBITUATE SCREEN NEGATIVE (Neg); URINE BENZODIAZEPINES SCREEN POSITIVE (Neg); URINE CANNABINOID SCREEN POSITIVE (Neg); URINE COCAINE SCREEN NEGATIVE (Neg); URINE METHADONE SCREEN NEGATIVE (Neg); URINE OPIATE SCREEN NEGATIVE (Neg); URINE PHENCYCLIDINE SCREEN NEGATIVE (Neg)
[2019-11-08] MEDS ORDERED: LORazepam 2 mg/ml vial IV ONE (12:05)
[2019-11-08] MEDS: diltiazem CD 180mg cap (once-daily) PO PRN (15:52)
--- NOTE | 2019-11-08 18:08 | NUR ---
Problems reprioritized. Patient report given Gregorio, questions answered & plan of care reviewed with .
--- NOTE | 2019-11-08 19:00 | NUR ---
Patient in room CICU 2014. I have received report from Shannan CARNES and had the opportunity to ask questions and assume patient care.
--- NOTE | 2019-11-08 19:30 | NUR ---
PT complained of a migraine and some anxiety, Spoke to July BULL BUCKER She ordered Atarax 40 mg, and I also gave the patient tylenol.
[2019-11-08] MEDS ORDERED: lactobacillus rhamnosus 10,000 MMU CELLS/CAPSULE PO SCH (20:00)
[2019-11-08] MEDS: hydrOXYzine 10 MG tablet PO PRN (20:06)
[2019-11-08] MEDS: predniSONE 20 mg tablet PO SCH (20:06)
[2019-11-09] VITALS (17 sets, daily range): BP systolic 109–153; BP diastolic 57–89
--- NOTE | 2019-11-09 | NUR ---
Pt resting quietly in bed, denies any needs at this time.
[2019-11-09 02:07] LABS: BASOPHILS % (AUTO) 0.1 % (0-1); EOSINOPHILS % (AUTO) 0.1 % (0-6); HEMATOCRIT 43.1 % (35.0-45.0); HEMOGLOBIN 14.2 g/dl (12.0-16.0); LYMPHOCYTES # (AUTO) 0.6 X10'3 (1.1-4.8); LYMPHOCYTES % (AUTO) 3.9 % (21-51); MEAN CORPUSCULAR HEMOGLOBIN 32.6 PG (27.0-31.0); MEAN CORPUSCULAR HGB CONC 32.9 g/dL (33.0-36.5); MONOCYTES # (AUTO) 0.3 X10'3 (0-0.9); MONOCYTES % (AUTO) 2.3 % (2-12); NEUTROPHILS # (AUTO) 14.4 X10'3 (1.8-7.7); NEUTROPHILS % (AUTO) 93.6 % (42-75); PLATELET COUNT 143 X10'3 (140-440); RED BLOOD COUNT 4.36 X10'6 (4.20-5.60); RED CELL DISTRIBUTION WIDTH 14.2 % (11.5-14.5); WHITE BLOOD COUNT 15.3 X10'3 (4.5-11.0)
[2019-11-09 02:15] LABS: ALANINE AMINOTRANSFERASE 22 U/L (12-78); ALBUMIN 3.1 G/DL (3.4-5.0); ALKALINE PHOSPHATASE 70 IU/L (46-116); ANION GAP 2 (8-16); ASPARTATE AMINO TRANSFERASE 17 U/L (10-37); BILIRUBIN,TOTAL 0.4 MG/DL (0.1-1.0); BLOOD UREA NITROGEN 20 MG/DL (7-18); CALCIUM 8.1 MG/DL (8.5-10.1); CHLORIDE 110 MMOL/L (99-107); CREATININE 0.87 MG/DL (0.40-0.90); GLUCOSE 124 MG/DL (70-104); MAGNESIUM 2.4 MG/DL (1.5-2.4); POTASSIUM 4.3 MMOL/L (3.5-5.1); SODIUM 143 MMOL/L (135-145); TOTAL CARBON DIOXIDE 31.3 MMOL/L (24-32); TOTAL PROTEIN 6.2 G/DL (6.4-8.2); eGFR 67 ML/MIN
[2019-11-09] MEDS: pantoprazole 40 MG vial IV SCH (07:23)
[2019-11-09] MEDS: predniSONE 20 mg tablet PO SCH (07:24)
[2019-11-09] MEDS: levoFLOXACIN-Levaquin 500mg/D5 100 ML IV SCH (07:24)
[2019-11-09] MEDS: CefTRIAXone 2gm/D5W 50ml 50 ML IV SCH (07:24)
[2019-11-09] MEDS: K, MAG and/or Phos replacement - Verify level? MC SCH (08:00)
[2019-11-09] MEDS: ESCITALOPRAM OXALATE 5 MG TABLET PO SCH (09:34)
[2019-11-09] MEDS: nicotine 21mg patch - 24 hr TD SCH (09:35)
[2019-11-09] MEDS ORDERED: ALPRAZolam 0.25mg tablet PO ONE (11:40)
--- NOTE | 2019-11-09 12:29 | NUR ---
Patient in room CICU 2014. I have received report from román Eric and had the opportunity to ask questions and assume patient care.
--- NOTE | 2019-11-09 13:01 | NUR ---
Pt transferred to [facility] Rm 3023C per w/c. In stable condition
[2019-11-09] MEDS ORDERED: albuterol 2.5 MG/3 ML nebule NEB PRN (14:45)
[2019-11-09] MEDS ORDERED: albuterol 2.5 MG/3 ML nebule NEB SCH (15:21)
--- NOTE | 2019-11-09 15:23 | NUR ---
rt paged with new orders
[2019-11-09] MEDS ORDERED: ipratropium 0.5 MG/2.5ML nebule IH SCH (15:25)
--- NOTE | 2019-11-09 18:28 | NUR ---
Problems reprioritized. Patient report given, questions answered & plan of care reviewed with román cali.
--- NOTE | 2019-11-09 18:39 | NUR ---
Patient in room PCU 3023. I have received report from Ana María CARNES and had the opportunity to ask questions and assume patient care.
[2019-11-09] MEDS: apixaban 5mg tablet PO SCH (19:24)
[2019-11-09] MEDS: acetaminophen 325mg tablet PO PRN (19:25)
[2019-11-09] MEDS: hydrOXYzine 10 MG tablet PO PRN (19:26)
[2019-11-09] MEDS ORDERED: non-formulary drug (Budesonide/Formoterol Fumarate (Symbicort 160-4.5 Mcg Inhaler) 2 PUFFS INH SCH (20:00)
[2019-11-09] MEDS: ipratropium/albuterol 3ml nebule NEB SCH (20:14)
[2019-11-09] MEDS: budesonide 0.5mg/2ml UD nebule IH SCH (20:14)
[2019-11-09] MEDS: morphine 2 MG/ML inj. syringe IV PRN (21:28)
[2019-11-10 02:00] VITALS: BP 119/70
[2019-11-10] MEDS: ipratropium/albuterol 3ml nebule NEB SCH ×2 (02:52→09:21)
[2019-11-10 06:27] LABS: BASOPHILS % (AUTO) 0.1 % (0-1); EOSINOPHILS # (AUTO) 0.1 X10'3 (0-0.9); EOSINOPHILS % (AUTO) 0.9 % (0-6); HEMATOCRIT 40.3 % (35.0-45.0); HEMOGLOBIN 13.4 g/dl (12.0-16.0); LYMPHOCYTES # (AUTO) 1.8 X10'3 (1.1-4.8); LYMPHOCYTES % (AUTO) 14.5 % (21-51); MEAN CORPUSCULAR HEMOGLOBIN 32.4 PG (27.0-31.0); MEAN CORPUSCULAR HGB CONC 33.2 g/dL (33.0-36.5); MEAN CORPUSCULAR VOLUME 97.8 FL (78-98); MEAN PLATELET VOLUME 10.5 FL (7.4-10.4); MONOCYTES # (AUTO) 1.4 X10'3 (0-0.9); MONOCYTES % (AUTO) 11.3 % (2-12); NEUTROPHILS % (AUTO) 73.2 % (42-75); PLATELET COUNT 138 X10'3 (140-440); RED BLOOD COUNT 4.12 X10'6 (4.20-5.60); RED CELL DISTRIBUTION WIDTH 14.3 % (11.5-14.5); WHITE BLOOD COUNT 12.3 X10'3 (4.5-11.0)
[2019-11-10 06:37] LABS: ALANINE AMINOTRANSFERASE 27 U/L (12-78); ALBUMIN 2.8 G/DL (3.4-5.0); ALKALINE PHOSPHATASE 65 IU/L (46-116); ANION GAP 6 (8-16); ASPARTATE AMINO TRANSFERASE 19 U/L (10-37); BILIRUBIN,TOTAL 0.2 MG/DL (0.1-1.0); BLOOD UREA NITROGEN 25 MG/DL (7-18); BUN/CREATININE RATIO 35.2 (6.6-38.0); CALCIUM 8.3 MG/DL (8.5-10.1); CHLORIDE 108 MMOL/L (99-107); CREATININE 0.71 MG/DL (0.40-0.90); GLUCOSE 111 MG/DL (70-104); MAGNESIUM 2.2 MG/DL (1.5-2.4); POTASSIUM 3.4 MMOL/L (3.5-5.1); SODIUM 144 MMOL/L (135-145); TOTAL CARBON DIOXIDE 30.3 MMOL/L (24-32); TOTAL PROTEIN 5.7 G/DL (6.4-8.2); eGFR 84 ML/MIN
--- NOTE | 2019-11-10 06:38 | NUR ---
Problems reprioritized. Patient report given, questions answered & plan of care reviewed with Tangela CARNES.
[2019-11-10 07:20] VITALS: BP 126/67
[2019-11-10] MEDS: CefTRIAXone 2gm/D5W 50ml 50 ML IV SCH (08:00)
[2019-11-10] MEDS: K, MAG and/or Phos replacement - Verify level? MC SCH (08:00)
[2019-11-10] MEDS ORDERED: non-formulary drug (Umeclidinium Bromide (Incruse Ellipta) 1 PUFF) PO SCH (08:00)
[2019-11-10] MEDS ORDERED: prednisone 10mg tablet PO SCH (08:30)
[2019-11-10] MEDS: ESCITALOPRAM OXALATE 5 MG TABLET PO SCH (08:58)
[2019-11-10] MEDS: levoFLOXACIN-Levaquin 500mg/D5 100 ML IV SCH (08:59)
[2019-11-10] MEDS: apixaban 5mg tablet PO SCH (08:59)
[2019-11-10] MEDS: nicotine 21mg patch - 24 hr TD SCH (08:59)
[2019-11-10] MEDS: hydrOXYzine 10 MG tablet PO PRN (09:03)
[2019-11-10] MEDS: morphine 2 MG/ML inj. syringe IV PRN (09:16)
[2019-11-10] MEDS: budesonide 0.5mg/2ml UD nebule IH SCH (09:21)
[2019-11-10] MEDS ORDERED: levoFLOXACIN 500mg tablet PO ONE (10:30)
--- NOTE | 2019-11-10 11:03 | NUR ---
PAGER ID: [phone] MESSAGE: Irma Matthews 3023C: patient c/o migraine. son still has over an hour drive. she's requesting a [place].... thanks, rocio [phone]
[2019-11-10 11:24] VITALS: BP 174/98
[2019-11-10] MEDS: diltiazem CD 180mg cap (once-daily) PO PRN (11:29)
[2019-11-10] MEDS ORDERED: NICO-687 TD (11:34)
[2019-11-10] MEDS ORDERED: PRED10TA23 PO (11:34)
[2019-11-10] MEDS ORDERED: LEVO500T89 PO (11:34)
[2019-11-10 12:13] VITALS: BP 165/95
--- NOTE | 2019-11-10 13:09 | NUR ---
Patient discharged home with son. Stable and appropriate. IV and vehicle monitor technician removed. All belongings taken from room. Discharge instructions given and reviewed with patient. all questions answered. new prescriptions sent to [facility] in [place].
[2019-11-12] MEDS ORDERED: methylnaltrexone br 12mg/0.6ml inj***SubQ only SQ SCH (08:00)
== END 2019-11-10 12:53 | disposition home or self-care (01) | DRG 208 ==
LOC: ER 08:50 → ED HOLD 11:00 → CICU 2S 13:18 → PCU 3S 11-09 12:47
PROVIDERS: ADMIT Internal Medicine Critical Care Medicine; ATTEND Internal Medicine Critical Care Medicine
PROC: 0BH17EZ Insertion of Endotracheal Airway into Trachea, Via Natural or Artificial Opening (ICD-10-PCS; principal; 2019-11-07)
PROC: 5A1935Z Respiratory Ventilation, Less than 24 Consecutive Hours (ICD-10-PCS; 2019-11-07)
DX: J96.01 Acute respiratory failure with hypoxia (principal); J18.9 Pneumonia, unspecified organism; J44.1 Chronic obstructive pulmonary disease with (acute) exacerbation; J44.0 Chronic obstructive pulmonary disease with (acute) lower respiratory infection; M06.9 Rheumatoid arthritis, unspecified; F32.9 Major depressive disorder, single episode, unspecified; G43.909 Migraine, unspecified, not intractable, without status migrainosus; Z79.899 Other long term (current) drug therapy; Z88.5 Allergy status to narcotic agent; Z85.43 Personal history of malignant neoplasm of ovary; Z86.711 Personal history of pulmonary embolism; Z87.891 Personal history of nicotine dependence; Z90.710 Acquired absence of both cervix and uterus
CPT/HCPCS: 36415; 36600; 70450; 71045; 71250; 80053; 80305; 82803; 82948; 83605; 83735; 83880; 85018; 85025; 85610; 85730; 87040; 87070; 87077; 87185; 87635; 93005; 94002; 94003; 94640; 94760; 96374; 97116; 99291; C9113; G0378; J0696; J1956; J2060; J2270; J2704; J2930; J7030; J7512; J7626